=== PATIENT | female | born 1960 | race Caucasian/White ===

== ENCOUNTER 2018-07-18 15:21 | Emergency (ER) | payer SELFPAY ==
[~2018-07-18] VITALS: Ht 167.6 cm; Wt 100.0 kg
[2018-07-18 15:27] VITALS: BP 140/98
[2018-07-18 15:54] LABS: BASOPHILS % (AUTO) 0 % (0-1); EOSINOPHILS # (AUTO) 0.01 x10^3/uL (0-0.4); EOSINOPHILS % (AUTO) 0 % (1-7); LYMPHOCYTES # (AUTO) 0.95 x10^3/uL (1-3.4); LYMPHOCYTES % (AUTO) 12 % (22-44); MD NO; MEAN CORPUSCULAR HEMOGLOBIN 28.9 pg (27.0-34.8); MEAN CORPUSCULAR HGB CONC 33.8 g/dL (32.4-35.8); MEAN CORPUSCULAR VOLUME 85.6 fL (80-100); MEAN PLATELET VOLUME 9.3 fL (7.4-10.4); MONOCYTES # (AUTO) 0.21 x10^3/uL (0.2-0.8); MONOCYTES % (AUTO) 3 % (2-9); NEUTROPHILS # (AUTO) 6.71 x10^3/uL (1.8-6.8); NEUTROPHILS % (AUTO) 85 % (42-75); PLATELET COUNT 216 x10^3/uL (130-400); RED BLOOD COUNT 5.43 x10^6/uL (3.82-5.3); RED CELL DISTRIBUTION WIDTH 14.6 % (9.6-15.2)
[2018-07-18] MEDS ORDERED: KETOROLAC 30 MG/1 ML ONE (15:56)
[2018-07-18] MEDS ORDERED: OXYcodone/APAP 10/325MG TABLET PO ONE (16:00)
[2018-07-18] MEDS ORDERED: KETOROLAC 30 MG/1 ML IM ONE (16:00)
[2018-07-18 16:08] LABS: ALBUMIN 4.2 g/dL (3.4-5.0); ANION GAP 7 mmol/L (5-15); CALCIUM 9.4 mg/dL (8.5-10.1); CHLORIDE 107 mmol/L (98-107); CREATININE 0.95 mg/dL (0.55-1.02)
--- NOTE | 2018-07-18 16:09 | NUR ---
PT WAS ADVISED TO REPORT THE NEED TO USE THE BR RE NEEDED STOOL FOR SAMPLE PT SEEN WALKING FROM ROOM TO THE BR THROUGH THE DOOR SHE STS DOES NOT NEED TO HAVE A STOOL JUST URINATE PT ASKED NOT TO FLUSH THE TOILET AFTER PT LEFT THE BR IT APPEARS SHE DID NOT FLUSH THE TOILET AND NO STOOL WAS PRESENT
[2018-07-18 16:12] LABS: MICROSCOPIC INDICATED
[2018-07-18 16:17] LABS: CULTURE INDICATED? NO
--- NOTE | 2018-07-18 17:31 | NUR ---
PT REFUSED HYDROCODONE RX ON DC RE CURRENT MEDS SHE IS ON THAT CONTAINS NARCDANII REVIEWED THIS WITH ERP PT TO TAKE MOTRIN
== END 2018-07-18 17:30 | disposition home or self-care (01) ==
LOC: ED 17:15
DX: N13.2 Hydronephrosis with renal and ureteral calculous obstruction (principal)
CPT/HCPCS: 36415; 74176; 80048; 81001; 82040; 85025; 96372; 99284; J1885